=== PATIENT | female | born 1930 | race Caucasian/White ===

== ENCOUNTER 2017-05-09 17:45 | Inpatient (IN) | payer MEDICARE, BC ==
[~2017-05-09] VITALS: Ht 154.9 cm; Wt 66.0 kg
[~2017-05-09 17:45] MED LIST: AMIODARONE HCL100 MG PO; COREG3.125 MG PO; EFFEXOR37.5 MG PO; FUROCOT20 MG PO; METFORMIN500 MG PO; NAPROXEN220 MG PO; NITROQUICK0.4 MG SL; POTASSIUM CL 220 MEQ PO; TUMS500 MG PO; ZESTRIL10 M1 PO
[2017-05-09 18:13] VITALS: BP 151/75
[2017-05-09 18:41] LABS: ALBUMIN 2.9 g/dL (3.5-5.0); CALCIUM 8.5 mg/dL (8.4-10.2); POTASSIUM 3.7 mmol/L (3.6-5.0); TOTAL BILIRUBIN 0.3 mg/dL (0.2-1.3); TOTAL PROTEIN 6.4 g/dL (6.3-8.2)
[2017-05-09 18:42] LABS: HEMATOCRIT 37.7 % (37.0-47.0); HEMOGLOBIN 11.6 g/dL (12.5-16.0); MEAN CELL VOLUME 100 fl (78-100); MEAN CORPUSCULAR HEMOGLOBIN 31 pg (27-31); MEAN CORPUSCULAR HGB CONC 31 g/dL (33-37); MEAN PLATELET VOLUME 10.8 fl (7.4-10.4); PLATELET COUNT 248 K/mm3 (130-400); RED BLOOD COUNT 3.79 M/mm3 (4.10-5.30); RED CELL DISTRIBUTION WIDTH 14.4 % (11.5-14.5); WHITE BLOOD COUNT 13.6 K/mm3 (4.8-10.8)
[2017-05-09 18:52] VITALS: BP 151/75
[2017-05-09 18:55] LABS: LYMPHOCYTE 12 % (20-51); MONOCYTE 7 % (3-10); NEUTROPHILS 81 % (42-75)
[2017-05-09] MEDS ORDERED: IPRATROPIUM BROM3 M1 IH (19:52)
[2017-05-09] MEDS ORDERED: ZITHROMAX 250M250 MG PO (19:52)
[2017-05-09] MEDS ORDERED: CEFDINIR300 MG PO (19:53)
[2017-05-09] MEDS ORDERED: GLUCOTROL5 M2 PO (19:54)
[2017-05-09] MEDS ORDERED: BISOPROLOL FUMA10 M1 PO (19:55)
[2017-05-09] MEDS ORDERED: CLARITIN LIQUI-10 MG PO (19:56)
[2017-05-09] MEDS ORDERED: GUAIFEN-CODEIN118 ML PO (19:56)
[2017-05-09] MEDS ORDERED: TORSEMIDE100 MG PO (19:57)
[2017-05-10 06:19] LABS: URINE APPEARANCE CLOUDY; URINE BILIRUBIN NEGATIVE (NEGATIVE); URINE BLOOD NEGATIVE (NEGATIVE); URINE COLOR YELLOW; URINE GLUCOSE NEGATIVE (NEGATIVE); URINE KETONE NEGATIVE (NEGATIVE); URINE LEUKOCYTE ESTERASE 1+ (NEGATIVE); URINE NITRATE NEGATIVE (NEGATIVE); URINE PROTEIN(semi-quant) TRACE mg/dL (NEGATIVE); URINE UROBILINOGEN NORMAL (NORMAL)
[2017-05-10 06:20] LABS: URINE MUCUS PRESENT (NOT PRESENT)
[2017-05-10 06:30] VITALS: BP 156/65
[2017-05-10 18:35] VITALS: BP 134/66
[2017-05-11 06:31] VITALS: BP 145/84
[2017-05-11 08:18] LABS: EOS # 0.1 (0.04-0.40); EOS % 0.9 % (1.0-5.0); HEMATOCRIT 36.6 % (37.0-47.0); HEMOGLOBIN 11.1 g/dL (12.5-16.0); LYMPH# 1.7 (1.50-4.00); MEAN CELL VOLUME 99 fl (78-100); MEAN CORPUSCULAR HEMOGLOBIN 30 pg (27-31); MEAN CORPUSCULAR HGB CONC 30 g/dL (33-37); MEAN PLATELET VOLUME 10.6 fl (7.4-10.4); MONO # 0.8 (0.20-0.80); PLATELET COUNT 212 K/mm3 (130-400); RED CELL DISTRIBUTION WIDTH 14.6 % (11.5-14.5); WHITE BLOOD COUNT 12.7 K/mm3 (4.8-10.8)
[2017-05-11 08:19] LABS: NEU # 10.1 (1.40-6.50)
[2017-05-11 08:26] LABS: ALBUMIN 2.9 g/dL (3.5-5.0); BUN/CREATININE RATIO 19.7 (6.0-26.0); CALCIUM 8.4 mg/dL (8.4-10.2); POTASSIUM 3.7 mmol/L (3.6-5.0); TOTAL BILIRUBIN 0.5 mg/dL (0.2-1.3); TOTAL PROTEIN 6.4 g/dL (6.3-8.2)
[2017-05-11 18:23] VITALS: BP 130/70
[2017-05-12 06:25] VITALS: BP 137/62
[2017-05-12 18:15] VITALS: BP 146/56
[2017-05-13 06:24] VITALS: BP 149/70
[2017-05-13 18:27] VITALS: BP 112/54
[2017-05-14 06:55] VITALS: BP 148/65
[2017-05-14 18:15] VITALS: BP 135/49
[2017-05-15 06:47] VITALS: BP 123/48
[2017-05-15 17:58] VITALS: BP 128/58
[2017-05-16 06:40] VITALS: BP 122/51
[2017-05-16 18:42] VITALS: BP 82/44
[2017-05-16 19:22] VITALS: BP 103/42
[2017-05-17 06:26] VITALS: BP 155/60
[2017-05-17] MEDS ORDERED: BENZONATATE200 MG PO (08:42)
[2017-05-17] MEDS ORDERED: GUAIFEN-CODEIN118 ML PO (08:43)
[2017-05-17] MEDS ORDERED: PREDNISONE20 MG PO (08:45)
== END 2017-05-17 14:15 | disposition home or self-care (01) | DRG 947 ==
LOC: MED/SURG 17:45
PROVIDERS: ADMIT Physician Assistant
DX: R53.81 Other malaise (principal); J10.00 Influenza due to other identified influenza virus with unspecified type of pneumonia; I50.32 Chronic diastolic (congestive) heart failure; E11.9 Type 2 diabetes mellitus without complications
CPT/HCPCS: J1650; J1815; J7512

== ENCOUNTER 2018-12-17 13:15 | Emergency (ER) | payer MEDICARE, BC ==
[~2018-12-17] VITALS: Wt 64.5 kg
[~2018-12-17 13:15] MED LIST changes: -AMIODARONE HCL100 MG PO; +AMIODARONE200 MG PO; +BENZONATATE200 MG PO; +BISOPROLOL FUMA10 M1 PO; +CEFDINIR300 MG PO; +CLARITIN LIQUI-10 MG PO; -EFFEXOR37.5 MG PO; +GLUCOTROL5 M2 PO; +GUAIFEN-CODEIN118 ML PO; +IPRATROPIUM BROM3 M1 IH; +PREDNISONE20 MG PO; +TORSEMIDE100 MG PO; +VENLAFAXINE37.5 MG PO; +ZITHROMAX 250M250 MG PO
[2018-12-17 13:55] LABS: HEMATOCRIT 34.9 % (37.0-47.0); MEAN CELL VOLUME 94 fl (78-100); MEAN CORPUSCULAR HEMOGLOBIN 30 pg (27-31); MEAN CORPUSCULAR HGB CONC 32 g/dL (33-37); MEAN PLATELET VOLUME 9.8 fl (7.4-10.4); PLATELET COUNT 425 K/mm3 (130-400); RED BLOOD COUNT 3.71 M/mm3 (4.10-5.30); RED CELL DISTRIBUTION WIDTH 15.1 % (11.5-14.5)
[2018-12-17 13:57] LABS: WHITE BLOOD COUNT 28.6 K/mm3 (4.8-10.8)
[2018-12-17 14:03] LABS: ALBUMIN 3.4 g/dL (3.4-4.8); POTASSIUM 3.8 mmol/L (3.5-5.1); SODIUM 138 mmol/L (136-145)
[2018-12-17 14:04] LABS: CALCIUM 9.2 mg/dL (8.3-10.5)
[2018-12-17 14:05] LABS: GLUCOSE 109 mg/dL (65-105)
[2018-12-17 14:07] LABS: CARBON DIOXIDE 28 mmol/L (23-31); TOTAL BILIRUBIN 0.3 mg/dL (0.2-1.2)
[2018-12-17 14:08] LABS: BAND 1 % (0-10); LYMPHOCYTE 3 % (20-51); NEUTROPHILS 93 % (42-75)
[2018-12-17 14:09] LABS: MONOCYTE 0 % (3-10)
[2018-12-17 14:11] LABS: AST-SGOT 14 U/L (5-34)
[2018-12-17 14:12] LABS: ALT/SGPT 18 U/L (0-55)
[2018-12-17 14:26] LABS: TROPONIN-I < 0.03 ng/mL (<0.030)
[2018-12-17 15:29] LABS: PH-URINE 7.5 (5.0 - 8.0); URINE APPEARANCE CLOUDY; URINE BILIRUBIN NEGATIVE (NEGATIVE); URINE BLOOD 250 ery/uL (NEGATIVE); URINE COLOR YELLOW; URINE GLUCOSE NEGATIVE (NEGATIVE); URINE KETONE NEGATIVE (NEGATIVE); URINE NITRATE POSITIVE (NEGATIVE); URINE PROTEIN(semi-quant) TRACE mg/dL (NEGATIVE); URINE UROBILINOGEN NORMAL (NORMAL)
[2018-12-17 15:30] LABS: URINE LEUKOCYTE ESTERASE 2+ (NEGATIVE); URINE MUCUS PRESENT (NOT PRESENT); URINE WBC >50 /hpf (0-3)
[2018-12-17] MEDS ORDERED: ALIVE ONCE DAI1 EACH PO (15:31)
[2018-12-17] MEDS ORDERED: LISINOPRIL2.5 MG PO (15:35)
[2018-12-17 18:10] VITALS: BP 120/45
== END 2018-12-17 18:32 | disposition short-term general hospital (02) ==
LOC: ED 13:15
PROVIDERS: Nurse Practitioner Family
DX: K57.92 Diverticulitis of intestine, part unspecified, without perforation or abscess without bleeding (principal); N39.0 Urinary tract infection, site not specified; N32.1 Vesicointestinal fistula; I48.91 Unspecified atrial fibrillation; E11.9 Type 2 diabetes mellitus without complications; I50.9 Heart failure, unspecified; F41.9 Anxiety disorder, unspecified; Z79.84 Long term (current) use of oral hypoglycemic drugs; Z86.73 Personal history of transient ischemic attack (TIA), and cerebral infarction without residual deficits; Z90.710 Acquired absence of both cervix and uterus; Z95.0 Presence of cardiac pacemaker; Z98.890 Other specified postprocedural states
CPT/HCPCS: J0744; J2405; J7030; Q9967

== ENCOUNTER → 2018-12-23 | Outpatient (CLI) | payer MEDICARE, BC ==
[2018-12-22 17:57] VITALS: BP 132/51
[~2018-12-23] MED LIST changes: +ALIVE ONCE DAI1 EACH PO; +LISINOPRIL2.5 MG PO; +TUMS REGULAR S500 MG PO
[2018-12-23 17:35] LABS: HEMATOCRIT 32.9 % (37.0-47.0); HEMOGLOBIN 10.2 g/dL (12.5-16.0); MEAN PLATELET VOLUME 10.5 fl (7.4-10.4); RED BLOOD COUNT 3.49 M/mm3 (4.10-5.30); RED CELL DISTRIBUTION WIDTH 15.2 % (11.5-14.5); WHITE BLOOD COUNT 14.4 K/mm3 (4.8-10.8)
[2018-12-23 17:39] LABS: ALBUMIN 3.2 g/dL (3.4-4.8)
[2018-12-23 17:40] LABS: POTASSIUM 3.9 mmol/L (3.5-5.1)
[2018-12-23 17:41] LABS: CALCIUM 8.7 mg/dL (8.3-10.5)
[2018-12-23 17:42] LABS: TOTAL PROTEIN 6.9 g/dL (6.2-8.1)
[2018-12-23 17:44] LABS: TOTAL BILIRUBIN 0.2 mg/dL (0.2-1.2)
== END ==
LOC: LAB 16:36
PROVIDERS: Family Medicine
DX: N39.0 Urinary tract infection, site not specified (principal)

== ENCOUNTER → 2018-12-30 | Outpatient (CLI) | payer MEDICARE, BC ==
[2018-12-29 17:38] VITALS: BP 129/57
[2018-12-30 17:16] LABS: BASO # 0.1 (0.02-0.10); EOS # 0.5 (0.04-0.40); EOS % 4.2 % (1.0-5.0); HEMATOCRIT 32.5 % (37.0-47.0); HEMOGLOBIN 9.9 g/dL (12.5-16.0); LYMPH# 2.5 (1.50-4.00); MEAN CELL VOLUME 95 fl (78-100); MEAN CORPUSCULAR HEMOGLOBIN 29 pg (27-31); MEAN CORPUSCULAR HGB CONC 31 g/dL (33-37); MEAN PLATELET VOLUME 9.8 fl (7.4-10.4); NEU # 6.9 (1.40-6.50); PLATELET COUNT 377 K/mm3 (130-400); RED BLOOD COUNT 3.42 M/mm3 (4.10-5.30); RED CELL DISTRIBUTION WIDTH 15.5 % (11.5-14.5); WHITE BLOOD COUNT 10.8 K/mm3 (4.8-10.8)
[2018-12-30 17:42] LABS: ALBUMIN 3.3 g/dL (3.4-4.8); POTASSIUM 3.8 mmol/L (3.5-5.1)
[2018-12-30 17:43] LABS: CALCIUM 8.8 mg/dL (8.3-10.5)
[2018-12-30 17:46] LABS: TOTAL BILIRUBIN 0.2 mg/dL (0.2-1.2)
== END ==
LOC: LAB 16:42
PROVIDERS: Hospitalist
DX: N39.0 Urinary tract infection, site not specified (principal)

== ENCOUNTER 2018-12-31 16:27 | Outpatient (RCR) | payer MEDICARE, BC ==
[2018-12-21 16:30] VITALS: BP 116/50
[2018-12-22 16:50] VITALS: BP 114/57
[2018-12-22 17:57] VITALS: BP 132/51
[2018-12-23 17:01] VITALS: BP 116/47
[2018-12-23 17:33] VITALS: BP 132/58
[2018-12-24 16:30] VITALS: BP 132/61
[2018-12-25 16:43] VITALS: BP 144/73
[2018-12-25 17:39] VITALS: BP 159/62
[2018-12-26 14:41] VITALS: BP 124/65
[2018-12-26 15:54] VITALS: BP 125/56
[2018-12-27 16:32] VITALS: BP 146/71
[2018-12-27 18:14] VITALS: BP 137/68
[2018-12-28 16:25] VITALS: BP 158/75
[2018-12-28 17:23] VITALS: BP 129/61
[2018-12-29 16:37] VITALS: BP 129/56
[2018-12-29 17:38] VITALS: BP 129/57
[2018-12-30 16:33] VITALS: BP 129/69
[~2018-12-31] VITALS: Ht 157.5 cm; Wt 62.7 kg
[2018-12-31 19:23] VITALS: BP 124/64
== END 2018-12-31 19:00 | disposition home or self-care (01) ==
LOC: AMSURD 16:27
DX: Z51.81 Encounter for therapeutic drug level monitoring (principal); Z79.899 Other long term (current) drug therapy
CPT/HCPCS: J0878; J1335